=== PATIENT | female | born 2005 | race Caucasian/White ===

== ENCOUNTER 2024-12-24 16:53 | Outpatient (REF) | payer MEDICAID, SELFPAY ==
--- OUTSIDE RECORDS SUMMARY | 2024-12-24 18:48 | XMS_ITS | Encounter Summary ---
Author Organization [employer] Address [address] [place] [address] [address] [place] [address] Care Team Providers Care Outdoor Power Equipment Mechanic Name Role Phone Gladis HagenP Primary Care Provider [phone] Deidre Ramos NP Primary Care Provider [phone] Reason for Visit * Reason Onset Date Comments Med Refill 08/18/2023 Encounter Details Date Type Department Care Team (Late st Contact Info) Description 08/18/2023 Telephone [facility] MED[facility] [address] [place], [place] [phone] Gladis Hagen FNP [address] [place], [place] [phone] Med Refill Social History Tobacco Use Types Packs/Day Years Used Date Smoking Tobacco: Never Passive Smoke Exposure: Never Smokeless Tobacco: Never Depression Answer Date Recorded Patient Health Questionnaire-9 Score 8 08/05/2023 Patient Health Questionnaire-9 Score 8 08/05/2023 Last PHQ-9: Questionnaire Data Not on file 1 10/05/2022 Housing Stability Answer Date Recorded What is your housing situation today? I have genet pike 08/05/[address] you li ve. Do you have problems with any of the following? None of the above 08/05/2023 Food Insecurity Answer Date Recorded Within the past 12 months, y ou worried that your food would run out before you got money to buy more: Never True 08/05/2023 Within the past 12 months,th e food you bought just didn't last and you didn't have enough money to get more: Never True Transportation Answer Date Recorded In the past 12 months, has l ack of transportation kept you from medical appts, meetings, work or from getting things needed for daily living? No 08/05/2023 Utilities Answer Date Recorded In the past 12 months, has t he electric, gas, oil or water company threatened to shut off services in your home? No 08/05/2023 Depression Answer Date Recorded Patient Health Questionnaire-2 Score 1 08/05/2023 Comments Unknown Sex and Gender Information Value Date Recorded Sex Assigned at Female 07/19/2022 10:20 AM EDT Legal Sex Female 10:20 AM EDT Gender Identity Female 07/19/2022 10:20 AM EDT Sexual Orientation Choose not to disclose 2021 10:20 AM EDT documented as of this encounter Miscellaneous Notes * Telephone Encounter - Miguelito Foss RN - 08/23/2023 1:24 PM EST PT. Is asking for Albuterol inhaler refill for Asthma and also looking for alternative for Debrox. Please review and advise if Albuterol needs to que for approval. * Telephone Encounter - Elina Epstein - 08/18/2023 2:52 PM EST Tc from mom requesting an alternative for Diclofenac Sodium 1 % gel due to warnings on medication about asthma attacks and hypertension. Also will need an alternative for carbamide peroxide (Debrox) 6.5 % otic solution due to insurance not covering medication. Any questions/clarification, please contact mom at [phone] (Ecuadorean) documented in this encounter Plan of Treatment Upcoming Encounters Date Type Department Care Team (Late st Contact Info) Description 03/26/2025 11:30 AM EDT Office Visit [facility] MED[facility]INE [address] [place] [address] Deidre Ramos NP [address] [place], [place] [phone] documented as of this encounter Visit Diagnoses Not on filedocumented in this encounter Additional Health Concerns Assessment Noted Time PHQ-9 Depression Total Score: 8 08/05/20 23 10:59 AM EST documented as of this encounter Care Teams Outdoor Power Equipment Mechanic Relationship Specialty Start Date End Date Gladis Hagen FNP [address] [place] [address] PCP - General Family Medicine 05/19/23 05/10/24 Deidre Ramos NP [address] [place] [address] PCP - General Family Medicine 05/11/24 documented as of this encounter
--- OUTSIDE RECORDS SUMMARY | 2024-12-24 18:48 | XMS_ITS | Encounter Summary ---
Author Organization [facility] Address [address] [facility] [facility] 7[address] [place] [address] Care Team Providers Care Bean Snipper Name Role Phone Deidre Ramos NP Primary Care Provider [phone] Reason for Referral * Consultation (Routine) - Pending Review Specialty Diagnoses / Procedures Referred By Eliseo kothari Referred To Contact Obstetrics and Gynecology Diagnoses Morbid obesity (CMS/HCC) Bardet-Biedl syndrome Irregular menses Deidre Ramos NP [address] [place] [address] Phone: tel: fax: Referral ID Status Reason Start Date Expiration Date Visits Requested Visits Authorized [id number] Pending Review Specialty Services Required 12/24/2024 12/24/2025 1 1 * Consultation (Routine) - Closed Specialty Diagnoses / Procedures Referred By Eliseo kothrai Referred To Contact Behavioral Health Diagnoses Bardet-Biedl syndrome Intellectual disability Speech delay Deidre Ramos NP [address] [place] [address] Phone: tel: fax: Referral ID Status Reason Start Date Expiration Date V isits Requested Visits Authorized [id number] Closed Specialty Services Required 12/24/2024 12/24/2025 1 1 * Consultation (Routine) - Pending Review Specialty Diagnoses / Procedures Referred By Eliseo kothari Referred To Contact Occupational Therapy Diagnoses Bardet-Biedl syndrome Intellectual disability Speech delay Deidre Ramos NP [address] [place] [address] Phone: tel: fax: Referral ID Status Reason Start Date Expiration Date Visits Requested Visits Authorized [id number] Pending Review Specialty Services Required 12/24/2024 12/24/2025 1 1 * Consultation (Routine) - Pending Review Specialty Diagnoses / Procedures Referred By Contac t Referred To Contact Speech Pathology Diagnoses Bardet-Biedl syndrome Intellectual disability Speech delay Deidre Ramos NP [address] [place] [address] Phone: tel: fax: Referral ID Status Reason Start Date Expiration Date Visits Requested Visits Authorized [id number] Pending Review Specialty Services Required 12/24/2024 12/24/2025 1 1 * Consultation (Routine) - Pending Review Specialty Diagnoses / Procedures Referred By Contac t Referred To Contact Bariatrics Diagnoses Morbid obesity ([facility]) Deidre Ramos NP [address] [place] [address] Phone: tel: fax: Referral ID Status Reason Start Date Expiration Date Visits Requested Visits Authorized [id number] Pending Review Specialty Services Required 12/24/2024 12/24/2025 1 1 * Consultation (Routine) - Authorized Specialty Diagnoses / Procedures Referred By Contac t Referred To Contact Dental Seed Yeast Operator / Dentistry Diagnoses Health care maintenance Deidre Ramos NP [address] [place] [address] Phone: tel: fax: Referral ID Status Reason Start Date Expiration Date Visits Requested Visits Authorized [id number] Authorized Consult and Treat 12/24/2024 12/24/2025 1 1 Encounter Details Date Type Department Care Team (Late st Contact Info) Description 12/24/2024 9:00 AM EDT Office Visit [facility] MEDICINE [address] [place] [address] Deidre Ramos NP [address] [place] [address] Morbid obesity (CMS/HCC) (Primary Dx); Health care maintenance; Primary hypertension; Mild intermittent asthma, unspecified whether complicated; Bardet-Biedl syndrome; Intellectual disability; Speech delay; Irregular menses; Dietary counseling; Exercise counseling Social History Tobacco Use Types Packs/Day Years Used Date Smoking Tobacco: Never Passive Smoke Exposure: Never Smokeless Tobacco: Never Depression Answer Date Recorded Patient Health Questionnaire-9 Score 3 12/24/2024 Patient Health Questionnaire-9 Score 3 12/24/2024 Last PHQ-9: Questionnaire Data Not on file 0 12/24/2024 Housing Stability Answer Date Recorded What is your housing situation today? I have genet pike 12/24/[address] you li ve. Do you have problems with any of the following? None of the above 12/24/2024 Food Insecurity Answer Date Recorded Within the past 12 months, y ou worried that your food would run out before you got money to buy more: Never True 12/24/2024 Within the past 12 months,th e food you bought just didn't last and you didn't have enough money to get more: Never True 03/2025 Transportation Answer Date Recorded In the past 12 months, has l ack of transportation kept you from medical appts, meetings, work or from getting things needed for daily living? No 12/24/2024 Utilities Answer Date Recorded In the past 12 months, has t he electric, gas, oil or water company threatened to shut off services in your home? No 12/24/2024 Depression Answer Date Recorded Patient Health Questionnaire-2 Score 2 12/24/2024 Internet Access Answer Date Recorded Internet Access Q1 Yes 12/24/2024 Internet Access Q2 Not on file 12/24/2024 Comments Unknown Sex and Gender Information Value Date Recorded Sex Assigned at Female 07/19/2022 10:20 AM EDT Legal Sex Female 10:20 AM EDT Gender Identity Female 07/19/2022 10:20 AM EDT Sexual Orientation Choose not to disclose 2021 10:20 AM EDT documented as of this encounter Last Filed Vital Signs Vital Sign Reading Time Taken Comments Blood Pressure 148/92 12/24/2024 9:24 AM EDT Pulse 86 12/24/2024 9:24 AM EDT Temperature 37.1 ??C (98.7 ??F) 12/24/2024 9:24 AM ED T Respiratory Rate 20 12/24/2024 9:24 AM EDT Oxygen Saturation 96% 12/24/2024 9:24 AM EDT Inhaled Oxygen Concentration - - Weight 165 kg (364 lb 12.8 oz) 12/24/2024 9:24 A M EDT Height 175.3 cm (5' 9 ) 12/24/2024 9:24 AM EDT Body Mass Index 53.87 12/24/2024 9:24 AM EDT documented in this encounter Miscellaneous Notes * Assessment & Plan Note - Deidre Ramos NP - 12/24/2024 9:55 AM EDTAssociated Problem(s): Dietary counseling Dietary Recommendations: Fruits, vegetables, whole grains, protein foods, and fat-free or low-fat dairy products are healthychoices. Eat different types of protein foods in your diet. This can include seafood, lean meats, poultry, beans, peas, lentils, nuts, seeds, soy products, and eggs. Limit foods and beverages higher in added sugars, saturated fat, and sodium. Exercise Recommendations: At least 150 minutes of moderate-intensity physical activity per week, or an equivalent combinationof moderate- and vigorous-intensity activity documented in this encounter Plan of Treatment Upcoming Encounters Date Type Department Care Team (Late st Contact Info) Description 03/26/2025 11:30 AM EDT Office Visit [facility] MEDICINE [address] [place] [address] Deidre Ramos NP [address] [place] [address] Scheduled Orders Name Type Priority Associated Diagnoses Orde r Schedule Chlamydia/N. Gonorrhoeae RNA, TMA, Urogenitial Microbiology Routine Health care maintenance Ordered: 12/24/2024 Scheduled Referrals Name Type Priority Associated Diagnoses Orde r Schedule Referral to [facility] Dental Adult Outpatient Referral Routine Health care maintenance Expected: 12/24/2024 (Approximate), Expires: 12/24/2025 Referral to Bariatric Surgery Outpatient Referral Routine Morbid obesity ([facility]/HCC) Expected: 12/24/2024 (Approximate), Expires: 12/24/2025 Referral to Speech Therapy Outpatient Referral Routine Bardet-Biedl syndrome Intellectual disability Speech delay Expected: 12/24/2024 (Approximate), Expires: 12/24/2025 Referral to Occupational Therapy Outpatient Referral Routine Bardet-Biedl syndrome Intellectual disability Speech delay Expected: 12/24/2024 (Approximate), Expires: 12/24/2025 Referral to Behavioral Health Outpatient Referral Routine Bardet-Biedl syndrome Intellectual disability Speech delay Expected: 12/24/2024 (Approximate), Expires: 12/24/2025 Referral to Obstetrics / Gynecology Outpatient Referral Routine Morbid obesity ([facility]) Bardet-Biedl syndrome Irregular menses Expected: 12/24/2024 (Approximate), Expires: 12/24/2025 documented as of this encounter Procedures Procedure Name Priority Date/Time Associated Diagnosis Comments POCT GLUCOSE Routine 12/24/2024 9:40 AM EDT Morbid obesity ([facility]) POCT GLYCATED HEMOGLOBIN, TOTAL Routine 12/24/2024 9:39 AM EDT Morbid obesity ([facility]) documented in this encounter Results * POCT Glucose (12/24/2024 9:40 AM EDT) Glucose Blood, POC 109 60 - 200 mg/dL QC Media Lot # [id number] Lot# Expiration Date [id number] Blood Capillary blood specimen / Unknown 12/24/2024 9:40 AM EDT us Deidre Ramos NP POINT OF CARE TEST ENTER/EDIT OR DERABLES Final Result * POCT HGB A1C (12/24/2024 9:39 AM EDT) Hemoglobin A1C 5.6 4.0 - 6.0 % QC Media Lot # [id number] Blood 12/24/2024 9:39 AM EDT Deidre Ramos NP POINT OF CARE TEST ENTER/EDIT OR DERABLES Final Result documented in this encounter Visit Diagnoses Diagnosis Morbid obesity (CMS/HCC)- Primary Morbid obesity Health care maintenance Primary hypertension Unspecified essential hypertension Mild intermittent asthma, unspecified whether complicated Bardet-Biedl syndrome Other specified congenital anomalies, so described Intellectual disability Unspecified mental retardation Speech delay Expressive language disorder Irregular menses Irregular menstrual cycle Dietary counseling Dietary surveillance and counseling Exercise counseling documented in this encounter Additional Health Concerns Assessment Noted Time PHQ-9 Depression Total Score: 3 12/25/19 25 9:51 AM EDT documented as of this encounter Care Teams Bean Snipper Relationship Specialty Start Date End Date Deidre Ramos NP [address] [place] [id number] PCP - General Family Medicine 05/11/24 documented as of this encounter
--- OUTSIDE RECORDS SUMMARY | 2024-12-24 18:48 | XMS_ITS | Encounter Summary ---
Author Organization [employer] [facility] Address [address] [place] [address] [address] [place] [address] Care Team Providers Care Geriatric Social Worker Name Role Phone Hadley Olivia MD Primary Care Provider [phone] Gladis HagenP Primary Care Provider [phone] Deidre Ramos NP Primary Care Provider [phone] Encounter Details Date Type Department Care Team (Late st Contact Info) Description 10/01/[address] [facility] [address] [place] [phone] Hadley Olivia MD [address] [place] [address] Hypertension, unspecified type (Primary Dx) Social History Tobacco Use Types Packs/Day Years Used Date Smoking Tobacco: Never Assessed Comments Unknown Sex and Gender Information Value Date Recorded Sex Assigned at Female 07/19/2022 10:20 AM EDT Legal Sex Female 10:20 AM EDT Gender Identity Female 07/19/2022 10:20 AM EDT Sexual Orientation Choose not to disclose 2021 10:20 AM EDT documented as of this encounter Plan of Treatment Upcoming Encounters Date Type Department Care Team (Late st Contact Info) Description 03/26/2025 11:30 AM EDT Office Visit [facility] MED[facility] [address] [place] [id number] Deidre Ramos NP [address] [place] [address] documented as of this encounter Visit Diagnoses Diagnosis Hypertension, unspecified type- Primary documented in this encounter Care Teams Geriatric Social Worker Relationship Specialty Start Date End Date Hadley Olivia MD [address] [place] [phone] PCP - General Pediatrics 06/11/14 05/18/23 Gladis Hagen FNP [address] [place] [address] PCP - General Family Medicine 05/19/23 05/10/24 Deidre Ramos NP [address] [place] [address] PCP - General Family Medicine 05/11/24 documented as of this encounter
--- OUTSIDE RECORDS SUMMARY | 2024-12-24 18:48 | XMS_ITS | Encounter Summary ---
Author Organization [employer] Address [address] [facility] [address]t [place] [address] Care Team Providers Care Pressure Testing Technician Name Role Phone Deidre Ramos SANTIAGO Primary Care Provider [phone] Encounter Details Date Type Department Care Team (Latest Contact Info) Description 12/24/2024 Travel Social History Tobacco Use Types Packs/Day Years [...] Description 03/26/2025 11:30 AM EDT Office Visit [facility] MEDICINE [address] [place] [address] Deidre Ramos NP [address] [place] [address] documented as of this encounter Visit Diagnoses Not on filedocumented in this encounter Additional Health Concerns Assessment Noted Time PHQ-9 Depression Total Score: 3 12/25/19 25 9:51 AM EDT documented as of this encounter Care Teams Pressure Testing Technician Relationship Specialty Start Date End Date Deidre Ramos NP [address] [place] [address] PCP - General Family Medicine 05/11/24 documented as of this encounter
--- OUTSIDE RECORDS SUMMARY | 2024-12-24 18:48 | XMS_ITS | Clinical Summary ---
Author Organization [facility] Address [address] [place] [address] [address] [place] [address] Care Team Providers Care Director On Air Name Role Phone JonathanDeidre hagen SANTIAGO Primary Care Provider [phone] Allergies No known active allergies Medications Blood Pressure Monitor kit measure BP once a week as needed 04/19/20 22 Active ibuprofen 100 MG/5ML suspension TAKE 20ML BY MOUTH EVERY 6 HOURS NEEDED FOR FEVER 03/14/20 22 Active Norethin-Eth Estradiol-Fe (Kaitlib Fe) 0.8-25 MG-MCG chewable tablet 1 daily Acti ve Pediatric Multivit-Minera ls-C (Multivit-Min Gummies Childrens) chewable tablet Chew 1 tablet in the morning. 04/08/20 21 Active albuterol (2.5 MG/3ML) 0.083% nebulizer solution Inhale 1 vial using nebulizer every four hours as needed 09/03/20 21 Active albuterol (Ventolin HFA) 108 (90 Base) MCG/ACT inhalerIndicati ons:Uncomplicat ed asthma, unspecified asthma severity, unspecified whether persistent INHALE 2 PUFFS EVERY 4 HOURS NEEDED FOR SHORTNESS OF BREATH COUGH OR WHEEZING 18 g 10/25/19 23 Active carbamide peroxide (Debrox) 6.5 % otic solutionIndicat ions:Bardet-Bie dl syndrome 5 drp to each ear canal 3x per week; tilt head to instill into ear; keep head tilted for 2-[address] cotton in ear 15 mL 2 08/05/20 23 Active Diclofenac Sodium 1 % gel APPLY 1 APPLICATION TOPICALLY IF NEEDED IN THE MORNING, AT NOON, AND AT BEDTIME (PAIN). 100 g 1 02/21/20 24 Active lisinopril 5 MG tabletIndicatio ns:Hypertension , unspecified type TAKE 1 TABLET BY MOUTH EVERY DAY IN THE MORNING 90 tablet 12/07/19 25 Active Atrovent HFA 17 MCG/ACT inhalerIndicati ons:Mild intermittent asthma, unspecified whether complicated Inhale 2 puffs in the morning, at noon, in the evening, and at bedtime. 12.9 g 1 12/25/19 25 Active Atrovent HFA 17 MCG/ACT inhaler INHALE 2 PUFFS 4 TIMES A DAY 06/16/20 22 2024 Discontinued(R eorder (will not trigger notification to Pharmacy)) lisinopril 5 MG tabletIndicatio ns:Hypertension , unspecified type TAKE 1 TABLET BY MOUTH EVERY DAY IN THE MORNING 90 tablet 08/27/20 24 2024 Discontinued Active Problems Problem Noted Date Diagnosed Date Morbid obesity 12/24/2024 Health care maintenance 12/24/2024 Speech delay 12/24/2024 Irregular menses 12/24/2024 Dietary counseling 12/24/2024 Assessment & Plan (12/24/2024 9:55 AM EDT): Dietary Recommendations: Fruits, vegetables, whole grains, protein foods, and fat-free or low-fat dairy products are healthy choices. Eat different types of protein foods in your diet. This can include seafood, lean meats, poultry, beans, peas, lentils, nuts, seeds, soy products, and eggs. Limit foods and beverages higher in added sugars, saturated fat, and sodium. 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 Intellectual disability 07/11/2014 Strabismus 05/25/2013 Vitamin D deficiency 05/25/2013 Obesity 09/08/2012 Obstructive sleep apnea syndrome 09/08/2012 Resolved Problems Problem Noted Date Diagnosed Date Resolved Date Mild persistent asthma 03/30/201610/19 Encounters Date Type Department Care Team Description 12/24/2024 9:00 AM EDT Office Visit [facility] [address] [place] [address] Deidre Ramos NP Morbid obesity (CMS/HCC) (Primary Dx); Health care maintenance; Primary hypertension; Mild intermittent asthma, unspecified whether complicated; Bardet-Biedl syndrome; Intellectual disability; Speech delay; Irregular menses; Dietary counseling; Exercise counseling 12/24/2024 Travel 12/17/2024 Patient Outreach [facility] [address] [place], [place] [phone] Deidre Ramos NP Pre-visit Planning ([facility]OH unable to reach [facility]) 12/12/2024 Telephone [facility] [address] [place], [place] [phone] Sadia Major MA Chart Prep 12/06/2024 Refill [facility] [address] [place], [place] [phone] Deidre Ramos NP Hypertension, unspecified type 11/30/2024 Population Health Risk Score [facility] () Department [address] [place] [id number] Provider, Population Health Generic from Last 3 Months Immunizations Name Administration Dates Next Due DTaP 04/17/2009, 6,08/31/2005,06/03,03/09/2005 Hep A, Unspecified 04/17/2009,01/13/2006 Hep A, ped/adol, 2 dose 04/17/2009,04/17,01/13/2006,01/13 Hep B, Adolescent or Pediatric 08/31/2005,2004,01/04/2005 Hib (HbOC) 09/16/2006,06/03/2005,03/09/2005 IPV 04/17/2009, 5,06/03/2005,03/09 Influenza injectable quadriv alent preservative free 12/09/2021,08/26/2015,07/11/2014 Influenza, IIV3, injectable 08/15/2013, 1 Influenza, Split (incl. kimber fied surface antigen) 10/16/2013,09/08/2012 MMR 04/17/2009,01/13/2006 Meningococcal MCV4O 12/09/2021 Moderna SARS-CoV-2 Booster Vaccination Pneumococcal Conjugate PCV 7 09/16/2006, 08/31/2005,06/03/2005,03/09 Tdap 12/09/2021 Varicella 04/17/2009,09/16/2006 Social History Tobacco Use Types Packs/Day Years Used Date Smoking Tobacco: Never Passive Smoke Exposure: Never Smokeless Tobacco: Never Tobacco Cessation:Counseling Given: Not Answered Depression Answer Date Recorded Patient Health Questionnaire-9 [...] not to disclose 2021 10:20 AM EDT Last Filed Vital Signs Vital Sign Reading [...] Mass Index 53.87 12/24/2024 9:24 AM EDT Plan of Treatment Upcoming Encounters Date Type Department Care Team (Late st Contact Info) Description 03/26/2025 11:30 AM EDT Office Visit [facility] [address] [place], [place] [phone] Deidre Ramos NP [address] [place] [address] Health Maintenance Due Date Last Done Comments Chlamydia and Gonorrhea Screening 2004 HIV Screening 2004 Fluoride Varnish 08/31/2005 Family Planning (PISQ) 12/31/2019 HPV Vaccines (1 - 3-dose series) 12/31/2019 Hepatitis C Screening 2022 Pneumococcal Vaccine: Pediatrics (0 to 5 Years) and At-Risk Patients (6 to 49) Years) (1 of 2 - PCV) 12/31/2023 09/16/2006, 08/31/2005, 06/03/2005, Additional history exists COVID-19 Vaccine (2 - 2023- season) 2024 12/09/2021 Influenza Vaccine (#1) 2024 2, 08/26/2015, 08/26/2015, Additional history exists Alcohol/Substance Use Screening 12/24/2025 12/24/2024 Depression Screening 12/24/2025 12/24/2024, 12/25/19 Diabetes: Hemoglobin A1C 12/24/2025 12/24/2024 SDOH Screening 12/24/2025 12/24/2024 Tobacco Screening 12/24/2025 12/24/2024 DTaP/Tdap/Td Vaccines (7 - Td or Tdap) 12/10/2031 12/09/2021, 04/17/2009, 09/16/2006, Additional history exists Zoster Vaccines (1 of 2) 2054 RSV Patients and Patients Aged 60 years or older (1 - 1-dose 75+ series) 12/31/2079 Hepatitis B Vaccines Completed 08/31/2005, 03/09/2005, 01/04/2005 HIB Vaccines Completed 09/16/2006, 05/20, 03/09/2005 Hepatitis A Vaccines Completed 04/17/2009, 04/17/2009, 04/17/2009, Additional history exists IPV Vaccines Completed 04/17/2009, 08/19, 06/03/2005, Additional history exists MMR Vaccines Completed 04/17/2009, 01/13/2006 Varicella Vaccines Completed 04/17/2009, 09/16/2006 Meningococcal Vaccine Completed 12/09/2021 RSV under 20 months Aged Out No longe r eligible based on patient's age to complete this topic Rotavirus Vaccines Aged Out No longer eligible based on patient's age to complete this topic Procedures Procedure Name Priority Date/Time Associated Diagnosis Comments POCT GLUCOSE Routine 12/24/2024 9:40 AM EDT Morbid obesity ([facility]) POCT GLYCATED HEMOGLOBIN, TOTAL Routine 12/24/2024 9:39 AM EDT Morbid obesity ([facility]) from Last 3 Months Results * POCT Glucose (12/24/2024 9:40 AM EDT) Glucose Blood, POC 109 60 - 200 mg/dL QC Media Lot # [id number] Lot# Expiration Date [id number] Blood Capillary blood specimen / Unknown 12/24/2024 9:40 AM EDT Deidre Ramos NP POINT OF CARE TEST ENTER/EDIT OR DERABLES Final Result * POCT HGB A1C (12/24/2024 9:39 AM EDT) Hemoglobin A1C 5.6 4.0 - 6.0 % QC Media Lot # [id number] Blood 12/24/2024 9:39 AM EDT Deidre Ramos LEVEL VIAL INSIDE GRINDER POINT OF CARE TEST ENTER/EDIT OR DERABLES Final Result from Last 3 Months Insurance Lecere C3 Lecere C3 Care Teams Director On Air Relationship Specialty Start Date End Date Deidre Ramos NP [address] [place] [phone] PCP - General Family Medicine 05/11/24
[2024-12-25 06:21] LABS: CT PCR NOT DETECTED (Not Detect.); NG PCR NOT DETECTED (Not Detect.)
== END 2024-12-24 16:54 | disposition home or self-care (01) ==
LOC: HO.HHCLNP 16:53
PROVIDERS: Visit Provider Nurse Practitioner Family
DX: Z00.00 Encounter for general adult medical examination without abnormal findings (principal)
CPT/HCPCS: 87491; 87591